=== PATIENT | male | born 1960 | race Caucasian/White ===

== ENCOUNTER 2020-06-23 09:13 | Day surgery (SDC) | payer OTHER, SELFPAY ==
[2020-06-23 09:17] VITALS: BP 175/112; PULSE 90; RESP 18; TEMP 36.2; O2SAT 97; BMI 39.2
--- NOTE | 2020-06-23 09:54 | XR_ITS ---
WS: [id number] Exam: XR toe LT min 2V [id number] Date/Time of Exam: 06/23/2020 9:54 AM Reason For Exam: 3rd toe ulcer/hx dm The third toe is targeted for radiographic evaluation. There is osseous destruction of the distal phalanx of the third toe suggesting acute osteomyelitis. T here is marked soft tissue swelling. The remaining osseous structures of the third toe are intact. Th ere appears to be small skin ulceration along the plantar aspect of the third toe. XR/XR toe LT min 2V [id number] IMPRESSION: 1. Osseous destruction of the distal phalanx of the third toe with marked soft tissue swelling. Findings suggest acute osteomyelitis.
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
[2020-06-23] MEDS: vancomycin 1,000 MG in sodium chloride 0.9% 250 ML 250 MG IV (10:41)
[2020-06-23 10:43] LABS: Basophils # 0.1 10^3/uL (0.0-0.1); Basophils % 0.9 %; Eosinophils # 0.4 10^3/uL (0.0-0.8); Eosinophils % 5.6 %; Hematocrit 46.3 % (42.0-52.0); Lymphocytes # 1.5 10^3/uL (0.8-4.8); Mean Corpuscular HGB Conc 32.4 g/dL (30.0-36.0); Mean Corpuscular Hemoglobin 28.7 pg (28.0-34.0); Mean Corpuscular Volume 88.5 fL (80-94); Mean Platelet Volume 12.3 fL (7.4-10.4); Monocytes # 0.6 10^3/uL (0.2-0.9); Monocytes % 8.8 %; Neutrophils # 3.94 10^3/uL (1.8-7.7); Neutrophils % 61.5 %; Nucleated Red Blood Cells % 0 %; Platelet Count 283 10^3/cmm (130-400); Red Blood Count 5.23 10^6/uL (4.1-5.3); Red Cell Distribution Width 12.7 % (12.1-15.1); White Blood Count 6.4 10^3/uL (4.0-10.0)
[2020-06-23 10:58] VITALS: BP 156/92; PULSE 80; RESP 18; O2SAT 98
[2020-06-23 11:07] LABS: Alanine Aminotransferase 15 U/L (0-41); Albumin Level 3.9 g/dL (3.5-5.2); Alkaline Phosphatase 93 IU/L (40-130); Anion Gap 12.9 (5-19); Aspartate Amino Transferase 16 U/L (0-40); Blood Urea Nitrogen 10 mg/dL (6-20); C Reactive Protein 12.7 mg/L (0.0-4.9); Carbon Dioxide 26 mmol/L (22-29); Chloride 103 mmol/L (98-107); Globulin 3.3 g/dL (1.3-4.6); Glomerular Filtration Rate 99.3 mL/min (90-130); Glucose 169 mg/dL (65-115); Osmolality Calculated 289 mOsm/kg (285-295); Potassium 3.9 mmol/L (3.5-5.1); Sodium 138 mmol/L (136-145); Total Bilirubin 0.3 mg/dL (0.15-1.2); Total Protein 7.2 g/dL (6.6-8.7)
[2020-06-23 12:40] VITALS: BP 137/80; PULSE 82; RESP 18; O2SAT 98
[2020-06-23 13:53] VITALS: PULSE 82; RESP 20; O2SAT 98
--- NOTE | 2020-06-23 14:20 | XR_ITS ---
WS: [id number] PORTABLE CHEST HISTORY: picc line placement COMPARISON: None available. Right-sided PICC line has been placed with tip in the distal SVC. Lungs are clear and well expanded. No pleural effusion or pneumothorax. Cardiac size: Normal. Mediastinum/Aorta: Normal mediastinum. No osseous abnormality seen. XR/XR chest 1V portable [id number] IMPRESSION: Satisfactory RIGHT PICC line placement.
--- NOTE | 2020-06-23 14:38 | PC.SOCIAL ---
Called [facility] and per [facility] [id number] Vancomycin no Prior authorization required. No Ref Number Date Called 06/23/2020 1435 Name: Natasha Rooney at [facility].
--- NOTE | 2020-06-23 15:38 | DCPLANNER ---
social media content manager was asked to arrange for IV antibotics for patient. social media content manager spoke with patient and his about which home health company that patient would like to see. Patients picked [facility] and [facility] for home health agencies. social media content manager had patients sign Patient Choice letter which stated which home health company patient would like to use. social media content manager called both of the companies and was told that they did not accept patients insurance which is [facility]. This will have to done at out patient surgery. social media content manager faxed prescription and out patient order to out patient surgery, faxed the order for the IV anitbotic to centralized scheduling. Patient has an appointment scheduled for 06.24.20 for IV antibotics at Out Patient Surgery. Out patient will tell patient when the appointment is scheduled for. social media content manager was also told to schedule a follow up appointment for patient with mauricio, Dr. Stephen. social media content manager called the ortho clinic, spoke with Nelda, gave clinic patients information. social media content manager was told that patients information would be printed and reviewed. Clinic will call patient with appointment information.
--- NOTE | 2020-06-28 10:53 | DCPLANNER ---
Patient had follow up appointment scheduled for 06.26.[address] Stephen - patient did attend appointment.
== END 2020-06-23 14:30 ==
LOC: ER 11:35 → OPS 12:55
PROVIDERS: Emergency Provider Family Medicine; Visit Provider Family Medicine
DX: Z45.2 Encounter for adjustment and management of vascular access device (principal)
CPT/HCPCS: 12345; 36569; 71045; 73660; 80053; 85025; 86140; 87040; 99283; J2250; J2704; J3010; J3370; J7050

== ENCOUNTER 2020-06-26 09:36 | Outpatient (CLI) | payer OTHER, MEDICAID, SELFPAY ==
[2020-06-27 09:48] LABS: Coronavirus Lab Test PTC Negative
== END 2020-06-26 09:37 | disposition home or self-care (01) ==
LOC: LAB 09:38
PROVIDERS: PCP Family Medicine; Visit Provider Family Medicine
DX: Z01.818 Encounter for other preprocedural examination (principal)
CPT/HCPCS: 87635

== ENCOUNTER 2020-06-26 09:47 | Outpatient (RCR) | payer OTHER, SELFPAY ==
[2020-06-24 08:55] VITALS: BMI 39.4
[2020-06-24 08:57] VITALS: BP 169/90; PULSE 88; RESP 16; TEMP 36.8; O2SAT 98
[2020-06-24] MEDS: vancomycin 1,500 MG/300 ML PIGGYBACK 200 MG IV (08:58)
[2020-06-25] MEDS: vancomycin 1,500 MG/300 ML PIGGYBACK 200 MG IV (07:45)
[2020-06-25 09:57] VITALS: BP 148/77; PULSE 76; RESP 18; TEMP 37; O2SAT 97
[2020-06-26] MEDS: vancomycin 1,500 MG/300 ML PIGGYBACK 275 MG IV (10:18)
[2020-06-26 10:19] VITALS: BP 135/82; PULSE 87; RESP 18; TEMP 36.7; O2SAT 98
== END 2020-07-03 23:59 | disposition home or self-care (01) ==
LOC: OPS 09:47
PROVIDERS: PCP Family Medicine; Visit Provider Family Medicine
DX: E11.42 Type 2 diabetes mellitus with diabetic polyneuropathy (principal); M86.8X7 Other osteomyelitis, ankle and foot; Z89.421 Acquired absence of other right toe(s)
CPT/HCPCS: 15852; 96365; 96366; J3370

== ENCOUNTER 2020-06-27 05:52 | Day surgery (SDC) | payer OTHER, SELFPAY ==
[2020-06-26 13:39] VITALS: BMI 39.3
[2020-06-27 06:06] VITALS: BP 140/91; PULSE 83; RESP 18; TEMP 37.1; O2SAT 97
[2020-06-27] MEDS: sodium chloride 0.9% 1,000 ML 30 ML IV (06:28)
[2020-06-27 06:31] LABS: Glucose Point of Care 127 mg/dL (70-110)
--- NOTE | 2020-06-27 06:51 | W.PM.OPSUD ---
Surgery/Procedure H&P Update DATE OF PROCEDURE: June 27, 2020 DATE H&P PERFORMED: 06/26/20 H&P UPDATE INFORMATION: I have reviewed H&P completed within last 30 days, I have examined patient prior to procedure, No changes to prior documentation and H&P is in [facility] [place] on date indicated PREOP DIAGNOSIS: Osteomyelitis left third toe PLANNED PROCEDURE: Operation Date: 06/27/20 07:20 Proposed Procedures p left 3rd toe amputation 35718 M86.9(Left) - Slava Stephen DPM
--- NOTE | 2020-06-27 06:54 | P.OP_ITS ---
Operative Report Date of procedure: June 27, 2020 Pre-op Diagnosis: Osteomyelitis left third toe Post-op diagnosis: same Post-op Findings: Devitalized soft tissue and bone left distal third toe Procedure Done: Left third toe amputation. CPT 69193 Implants: 3-0 Vicryl, 3-0 nylon Specimens removed/disposition: Bone biopsy distal phalanx left third toe sent to microbiology for Gram stain and culture Pathology: none sent Surgeon: Slava Stephen DPM Brand Advisor: Alise Anesthesia: MAC Estimated blood loss: 10 mL Tourniquet time: See intraoperative documentation IV fluids: None Urine output: None Complications: None Findings: Devitalized soft tissue and bone distal phalanx left third toe Condition: stable Disposition: PACU Brief History: Patient is a pleasant 59-year-old diabetic male with osteomyelitis to the distal phalanx left third toe. He does not wish to undergo long-term antibiotics with PICC line states he would prefer to have amputation is more definitive and curative option and avoid the transportation and financial burden of long-term antibiotics with chances of amputation down the road. Risks include pain, bleeding, numbness, persistent infection need for higher level of amputation, transfer pressure and transfer lesion new wound formation, surgical site dehiscence need for antibiotics. Procedure: Under mild sedation the patient was brought to the operating room and placed on the operating table in supine position. Timeout was performed. Anesthesia was then administered by the anesthesia service. Local anesthesia injected by myself consisting of 20 cc of 0.5% Marcaine plain and a left third ray block fashion proximally. Well-padded pneumatic tourniquet applied to the left ankle. Left lower extremity was then scrubbed, prepped and draped utilizing normal aseptic technique. Left foot was elevated and tourniquet inflated to 250 mmHg. Attention was directed to the left third toe where 2 converging semielliptical incisions were carried out in a vertical fashion at the third metatarsal phalangeal joint full-thickness with a #15 blade where the third toe was disarticulated sharply from the metatarsophalangeal joint and passed from operative field. Incision site was irrigated with copious amounts of sterile saline solution. Extensor and flexor tendons retracted under traction and cut at the proximal margin. All bleeders were ligated and cauterized as necessary. The head of the left third metatarsal was directly visualized at appropriate density in color without any signs of necrosis. Further irrigation was performed followed by closure of the deep subcutaneous and fascial layer consisting of 3-0 Vicryl. Skin closed with 3-0 nylon. Incision site was dressed with Adaptic, sterile 4 x 4's, Kerlix and Petar wrap followed by application of postop shoe. Tourniquet was deflated and a prompt hyperemic response was noted to the remaining distal digits of the left foot. Patient tolerated procedure well and was transferred to the PACU with vital signs stable and vascular status intact. Following a period of postoperative monitoring he will be discharged home was prescribed doxycycline 100 mg to be taken twice daily for the next 2 weeks will adjust antibiotics appropriately once cultures yield further information. He is to elevate his left foot at all times minimal weightbearing heel touch for transfers only. Will follow up on 07/03/2024 first dressing change.
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
--- NOTE | 2020-06-27 08:34 | XR_ITS ---
WS: [id number] XR foot LT min 3V* [id number] REASON FOR EXAM: post op FINDINGS: Compared to previous examination of 06/23/2020 there is been surgical removal of the phalanges of the left third toe. No bony fragments or other radiopaque abnormality in the soft tissues at the [facility] l bed. XR/XR foot LT min 3V* [id number] IMPRESSION: Amputation of distal left third toe as above.
[2020-06-27 09:05] VITALS: BP 134/89; PULSE 77; RESP 16; TEMP 36.2; O2SAT 98
--- NOTE | 2020-06-27 13:33 | ANE.PACU2 ---
Inpatient post-anesthesia follow up: Airway intact: Yes Vital signs: Temperature 97.2 F Pulse Rate 77 Respiratory Rate 16 Blood Pressure 134/89 Pulse Oximetry 98 Oxygen Delivery Me thod Room Air Oxygen Flow Rate Fraction of Inspir ed Oxygen Hydration adequate: Yes Nausea and vomiting: No Pain level: 2 Mental status: Baseline
== END 2020-06-27 09:35 | disposition home or self-care (01) ==
PROVIDERS: PCP Family Medicine; Visit Provider Podiatrist Foot & Ankle Surgery
PROC: (CPT 28820; principal; 2020-06-27 07:20)
DX: M86.8X7 Other osteomyelitis, ankle and foot (principal); E11.9 Type 2 diabetes mellitus without complications; I10 Essential (primary) hypertension
CPT/HCPCS: 28820; 12345; 36416; 73630; 82962; 87070; 87075; 87205; 88305; J0690; J2250; J2704; J3010; J3490; J7030

== ENCOUNTER → 2020-07-13 08:46 | Outpatient (BNVA) | payer OTHER, SELFPAY | PROVIDERS: PCP Family Medicine; Visit Provider Podiatrist Foot & Ankle Surgery | DX: E11.69 Type 2 diabetes mellitus with other specified complication (principal); M86.9 Osteomyelitis, unspecified; E11.42 Type 2 diabetes mellitus with diabetic polyneuropathy; Z47.89 Encounter for other orthopedic aftercare | CPT/HCPCS: 73630 ==

== ENCOUNTER → 2020-08-17 11:37 | Outpatient (BNVA) | payer OTHER, SELFPAY | PROVIDERS: PCP Family Medicine; Visit Provider Podiatrist Foot & Ankle Surgery | DX: Z47.89 Encounter for other orthopedic aftercare (principal); E11.42 Type 2 diabetes mellitus with diabetic polyneuropathy; Z89.422 Acquired absence of other left toe(s); M19.072 Primary osteoarthritis, left ankle and foot | CPT/HCPCS: 73630 ==

== ENCOUNTER 2020-08-17 14:04 | Outpatient (CLI) | payer OTHER, SELFPAY | END 2020-08-17 14:05 | disposition home or self-care (01) | LOC: SPT 14:05 | PROVIDERS: PCP Family Medicine; Visit Provider Podiatrist Foot & Ankle Surgery | DX: Z46.89 Encounter for fitting and adjustment of other specified devices (principal); L97.522 Non-pressure chronic ulcer of other part of left foot with fat layer exposed | CPT/HCPCS: 87070; 87075; 87077; 87186; 87205; 97760; L4361 ==

== ENCOUNTER 2020-08-21 14:04 | Outpatient (CLI) | payer OTHER, SELFPAY | END 2020-08-21 14:05 | disposition home or self-care (01) | LOC: WOUND 14:05 | PROVIDERS: PCP Family Medicine; Visit Provider Nurse Practitioner Family | DX: E11.621 Type 2 diabetes mellitus with foot ulcer (principal); L97.522 Non-pressure chronic ulcer of other part of left foot with fat layer exposed | CPT/HCPCS: 11042; G0463; L4387 ==

== ENCOUNTER 2020-08-28 13:59 | Outpatient (CLI) | payer OTHER, SELFPAY | END 2020-08-28 14:00 | disposition home or self-care (01) | PROVIDERS: PCP Family Medicine; Visit Provider Thoracic Surgery (Cardiothoracic Vascular Surgery) | DX: E11.621 Type 2 diabetes mellitus with foot ulcer (principal); L97.522 Non-pressure chronic ulcer of other part of left foot with fat layer exposed | CPT/HCPCS: 11044; 87070; 87077; 87176; 87186; 87205 ==

== ENCOUNTER 2020-09-04 13:59 | Outpatient (CLI) | payer OTHER, SELFPAY | END 2020-09-04 14:00 | disposition home or self-care (01) | LOC: WOUND 14:00 | PROVIDERS: PCP Family Medicine; Visit Provider Surgery | DX: E11.621 Type 2 diabetes mellitus with foot ulcer (principal); L97.522 Non-pressure chronic ulcer of other part of left foot with fat layer exposed | CPT/HCPCS: 11042 ==

== ENCOUNTER 2020-09-11 14:39 | Outpatient (CLI) | payer OTHER, SELFPAY | END 2020-09-11 14:40 | disposition home or self-care (01) | LOC: WOUND 14:40 | PROVIDERS: PCP Family Medicine; Visit Provider Nurse Practitioner Family | DX: E11.621 Type 2 diabetes mellitus with foot ulcer (principal); L97.522 Non-pressure chronic ulcer of other part of left foot with fat layer exposed | CPT/HCPCS: 11042 ==

== ENCOUNTER 2020-10-02 12:58 | Outpatient (CLI) | payer OTHER, SELFPAY | END 2020-10-02 12:59 | disposition home or self-care (01) | LOC: WOUND 12:58 | PROVIDERS: PCP Family Medicine; Visit Provider Nurse Practitioner Family | DX: E11.621 Type 2 diabetes mellitus with foot ulcer (principal); L97.522 Non-pressure chronic ulcer of other part of left foot with fat layer exposed | CPT/HCPCS: 11042 ==

== ENCOUNTER 2020-10-09 13:00 | Outpatient (CLI) | payer OTHER, SELFPAY | END 2020-10-09 13:01 | disposition home or self-care (01) | LOC: WOUND 13:02 | PROVIDERS: PCP Family Medicine; Visit Provider Thoracic Surgery (Cardiothoracic Vascular Surgery) | DX: E11.621 Type 2 diabetes mellitus with foot ulcer (principal); L97.522 Non-pressure chronic ulcer of other part of left foot with fat layer exposed | CPT/HCPCS: 11043 ==

== ENCOUNTER 2020-10-16 13:05 | Outpatient (CLI) | payer OTHER, SELFPAY | END 2020-10-16 13:06 | disposition home or self-care (01) | LOC: WOUND 13:05 | PROVIDERS: PCP Family Medicine; Visit Provider Nurse Practitioner Family | DX: E11.621 Type 2 diabetes mellitus with foot ulcer (principal); L97.522 Non-pressure chronic ulcer of other part of left foot with fat layer exposed | CPT/HCPCS: 11042 ==

== ENCOUNTER 2020-10-23 13:06 | Outpatient (CLI) | payer OTHER, SELFPAY | END 2020-10-23 13:07 | disposition home or self-care (01) | LOC: WOUND 13:07 | PROVIDERS: PCP Family Medicine; Visit Provider Nurse Practitioner Family | DX: E11.621 Type 2 diabetes mellitus with foot ulcer (principal); L97.522 Non-pressure chronic ulcer of other part of left foot with fat layer exposed | CPT/HCPCS: 11042 ==

== ENCOUNTER 2020-10-27 08:51 | Outpatient (CLI) | payer OTHER, SELFPAY ==
--- NOTE | 2020-10-27 08:56 | MR_ITS ---
WS: [id number] MRI LEFT FOOT with and without CONTRAST. COMPARISON: 08/17/2020 radiographs. HISTORY: Prior third toe amputation. Ulcer RIGHT second toe. Multiplanar, multisequence imaging is performed with and without contrast. Prior amputation of the third toe. Soft tissue ulceration with decreased T1 signal and increased T2 signal involving the very distal sec ond toe. There is enhancement within the soft tissues of the adjacent distal phalanx of the second to e. The area of abnormal signal and enhancement measures 12 x 11 mm and is contiguous with the ulcerat ion. No fluid at the DIP joint. Mild soft tissue enhancement surrounds the second toe and extending i nto the third toe amputation site but there is no abscess. Moderate degenerative changes at the first metatarsophalangeal joint. Subchondral erosions and small osteophytes with joint space narrowing. No fractures. Flexion and extension tendons are normal. Achil les tendon is intact. MR/MR foot LT wo/w con [id number] IMPRESSION: 1. Cellulitis and focal osteomyelitis involving the very distal second toe. Th e area of cellulitis and osteomyelitis measures 12 x 11 mm. 2. Prior third toe amputation.
[2020-10-27] MEDS: gadobenate dimeglumine 20 mL vial IV (10:20)
== END 2020-10-27 08:52 | disposition home or self-care (01) ==
LOC: RADSHAW 08:55
PROVIDERS: PCP Family Medicine; Visit Provider Thoracic Surgery (Cardiothoracic Vascular Surgery)
DX: E11.621 Type 2 diabetes mellitus with foot ulcer (principal); L97.519 Non-pressure chronic ulcer of other part of right foot with unspecified severity; Z89.422 Acquired absence of other left toe(s); L03.032 Cellulitis of left toe; M86.8X7 Other osteomyelitis, ankle and foot
CPT/HCPCS: 73720; A9577

== ENCOUNTER 2020-10-30 13:47 | Outpatient (CLI) | payer OTHER, SELFPAY | END 2020-10-30 13:48 | disposition home or self-care (01) | LOC: WOUND 13:48 | PROVIDERS: PCP Family Medicine; Visit Provider Nurse Practitioner Family | DX: E11.621 Type 2 diabetes mellitus with foot ulcer (principal); L97.522 Non-pressure chronic ulcer of other part of left foot with fat layer exposed | CPT/HCPCS: 11042 ==

== ENCOUNTER 2020-11-06 14:50 | Outpatient (CLI) | payer OTHER, SELFPAY | END 2020-11-06 14:51 | disposition home or self-care (01) | LOC: WOUND 14:51 | PROVIDERS: PCP Family Medicine; Visit Provider Nurse Practitioner Family | DX: E11.621 Type 2 diabetes mellitus with foot ulcer (principal); L97.522 Non-pressure chronic ulcer of other part of left foot with fat layer exposed | CPT/HCPCS: 11042 ==

== ENCOUNTER 2020-11-20 11:11 | Outpatient (CLI) | payer OTHER, SELFPAY | END 2020-11-20 11:12 | disposition home or self-care (01) | LOC: WOUND 11:12 | PROVIDERS: PCP Family Medicine; Visit Provider Nurse Practitioner Family | DX: E11.621 Type 2 diabetes mellitus with foot ulcer (principal); L97.522 Non-pressure chronic ulcer of other part of left foot with fat layer exposed | CPT/HCPCS: 11042 ==

== ENCOUNTER 2020-11-27 14:06 | Outpatient (CLI) | payer OTHER, SELFPAY | END 2020-11-27 14:07 | disposition home or self-care (01) | LOC: WOUND 14:07 | PROVIDERS: PCP Family Medicine; Visit Provider Thoracic Surgery (Cardiothoracic Vascular Surgery) | DX: E11.621 Type 2 diabetes mellitus with foot ulcer (principal); L97.522 Non-pressure chronic ulcer of other part of left foot with fat layer exposed | CPT/HCPCS: 11042 ==

== ENCOUNTER 2020-12-04 14:51 | Outpatient (CLI) | payer OTHER, SELFPAY | END 2020-12-04 14:52 | disposition home or self-care (01) | LOC: WOUND 14:52 | PROVIDERS: PCP Family Medicine; Visit Provider Thoracic Surgery (Cardiothoracic Vascular Surgery) | DX: E11.621 Type 2 diabetes mellitus with foot ulcer (principal); L97.522 Non-pressure chronic ulcer of other part of left foot with fat layer exposed | CPT/HCPCS: 11042 ==

== ENCOUNTER 2020-12-11 14:56 | Outpatient (CLI) | payer OTHER, SELFPAY | END 2020-12-11 14:57 | disposition home or self-care (01) | LOC: WOUND 14:58 | PROVIDERS: PCP Family Medicine; Visit Provider Thoracic Surgery (Cardiothoracic Vascular Surgery) | DX: E11.621 Type 2 diabetes mellitus with foot ulcer (principal); L97.522 Non-pressure chronic ulcer of other part of left foot with fat layer exposed | CPT/HCPCS: 11042 ==

== ENCOUNTER 2020-12-18 15:08 | Outpatient (CLI) | payer OTHER, SELFPAY | END 2020-12-18 15:09 | disposition home or self-care (01) | LOC: WOUND 15:08 | PROVIDERS: PCP Family Medicine; Visit Provider Thoracic Surgery (Cardiothoracic Vascular Surgery) | DX: E11.621 Type 2 diabetes mellitus with foot ulcer (principal); L97.522 Non-pressure chronic ulcer of other part of left foot with fat layer exposed | CPT/HCPCS: 11042 ==

== ENCOUNTER 2020-12-28 15:40 | Outpatient (CLI) | payer OTHER, SELFPAY | END 2020-12-28 15:41 | disposition home or self-care (01) | LOC: WOUND 15:41 | PROVIDERS: PCP Family Medicine; Visit Provider Thoracic Surgery (Cardiothoracic Vascular Surgery) | DX: E11.621 Type 2 diabetes mellitus with foot ulcer (principal); L97.522 Non-pressure chronic ulcer of other part of left foot with fat layer exposed | CPT/HCPCS: 11042 ==

== ENCOUNTER 2021-01-04 14:58 | Outpatient (CLI) | payer OTHER, SELFPAY | END 2021-01-04 14:59 | disposition home or self-care (01) | LOC: WOUND 14:59 | PROVIDERS: PCP Family Medicine; Visit Provider Thoracic Surgery (Cardiothoracic Vascular Surgery) | DX: E11.621 Type 2 diabetes mellitus with foot ulcer (principal); L97.522 Non-pressure chronic ulcer of other part of left foot with fat layer exposed | CPT/HCPCS: 11042 ==

== ENCOUNTER 2021-01-11 15:58 | Outpatient (CLI) | payer OTHER, SELFPAY | END 2021-01-11 15:59 | disposition home or self-care (01) | LOC: WOUND 15:58 | PROVIDERS: PCP Family Medicine; Visit Provider Thoracic Surgery (Cardiothoracic Vascular Surgery) | DX: E11.621 Type 2 diabetes mellitus with foot ulcer (principal); L97.525 Non-pressure chronic ulcer of other part of left foot with muscle involvement without evidence of necrosis | CPT/HCPCS: 11042 ==

== ENCOUNTER 2021-01-17 14:51 | Outpatient (CLI) | payer OTHER, SELFPAY ==
--- NOTE | 2021-01-17 15:08 | ECG_ITS ---
[facility] Test Date: 2021-01-17 Pat Name: Melvin Contreras Department: Room: Gender: Male Plaster Lather: : 1960 Requested By: Mauricio Lewis Order Number: [id number] Jhonathan MD: Lauren Mujica M.D. Measurements Intervals [place] Rate: 80 P: 29 NE: 152 QRS: 36 QRSD: 87 T: 42 QT: 364 QTc: 422 Interpretive Statements SINUS RHYTHM WITH OCCASIONAL SUPRAVENTRICULAR PREMATURE COMPLEXES LOW QRS VOLTAGE IN PRECORDIAL LEADS [QRS DEFLECTION < 1.0 mV IN CHEST LEADS] No previous ECG available for comparison Electronically Signed On 01-17-2021 17:51:37 CDT by Lauren Mujica M.D. [id number]
--- NOTE | 2021-01-17 15:19 | XR_ITS ---
WS: [id number] Exam: XR chest 2V* [id number] Date/Time of Exam: 01/17/2021 3:54 PM Reason For Exam: SCREENING FOR RESPIRATORY DISORDERS/?BULLOUS DZ Comparison 07/01/2020. Findings: The lungs are clear and fully expanded. Costophrenic angles are sharp. No infiltrates. Bronchovascula r relief appears normal. Cardiac silhouette is unremarkable. Bony elements are intact. XR/XR chest 2V* [id number] IMPRESSION: Unremarkable chest radiograph.
[2021-01-17 16:36] LABS: Basophils # 0.1 10^3/uL (0.0-0.1); Basophils % 0.9 %; Eosinophils # 0.5 10^3/uL (0.0-0.8); Eosinophils % 6.5 %; Hematocrit 46.6 % (42.0-52.0); Hemoglobin 15.4 g/dL (11.7-16.6); Lymphocytes # 1.9 10^3/uL (0.8-4.8); Lymphocytes % 25.7 %; Mean Corpuscular Hemoglobin 29.7 pg (28.0-34.0); Monocytes # 0.7 10^3/uL (0.2-0.9); Monocytes % 9.6 %; Neutrophils # 4.28 10^3/uL (1.8-7.7); Neutrophils % 57.2 %; Nucleated Red Blood Cells % 0 %; Platelet Count 209 10^3/cmm (130-400); Red Blood Count 5.18 10^6/uL (4.1-5.3); Red Cell Distribution Width 13.5 % (12.1-15.1); White Blood Count 7.5 10^3/uL (4.0-10.0)
[2021-01-17 17:00] LABS: Alanine Aminotransferase 16 U/L (0-41); Albumin Level 4.1 g/dL (3.5-5.2); Alkaline Phosphatase 88 IU/L (40-130); Anion Gap 14.1 (5-19); Aspartate Amino Transferase 17 U/L (0-40); Blood Urea Nitrogen 12 mg/dL (6-20); C Reactive Protein 27.5 mg/L (0.0-4.9); Calcium 8.6 mg/dL (8.5-10.5); Carbon Dioxide 29 mmol/L (22-29); Chloride 104 mmol/L (98-107); Glomerular Filtration Rate 115.4 mL/min (90-130); Glucose 122 mg/dL (65-115); Osmolality Calculated 297 mOsm/kg (285-295); Potassium 4.1 mmol/L (3.5-5.1); Sodium 143 mmol/L (136-145); Total Bilirubin 0.6 mg/dL (0.15-1.2); Total Protein 7.1 g/dL (6.6-8.7)
[2021-01-17 17:19] LABS: Prealbumin 20.2 mg/dL (20-40)
[2021-01-17 18:09] LABS: Erythrocyte Sedimentation Rate 22 mm/hr (0-10)
[2021-01-17 19:41] LABS: Estmated Average Glucose 120; Hemoglobin A1C 5.8 % (4.0-6.0)
== END 2021-01-17 14:52 | disposition home or self-care (01) ==
PROVIDERS: PCP Family Medicine; Visit Provider Thoracic Surgery (Cardiothoracic Vascular Surgery)
DX: Z13.83 Encounter for screening for respiratory disorder NEC (principal)
CPT/HCPCS: 36415; 71046; 80053; 83036; 84134; 85025; 85651; 86140; 93005

== ENCOUNTER 2021-01-18 14:54 | Outpatient (CLI) | payer OTHER, SELFPAY | END 2021-01-18 14:55 | disposition home or self-care (01) | LOC: WOUND 14:55 | PROVIDERS: PCP Family Medicine; Visit Provider Thoracic Surgery (Cardiothoracic Vascular Surgery) | DX: E11.621 Type 2 diabetes mellitus with foot ulcer (principal); L97.526 Non-pressure chronic ulcer of other part of left foot with bone involvement without evidence of necrosis | CPT/HCPCS: 11042 ==

== ENCOUNTER 2021-01-25 14:18 | Outpatient (CLI) | payer OTHER, SELFPAY | END 2021-01-25 14:19 | disposition home or self-care (01) | LOC: WOUND 14:19 | PROVIDERS: PCP Family Medicine; Visit Provider Nurse Practitioner Family | DX: E11.621 Type 2 diabetes mellitus with foot ulcer (principal); L97.522 Non-pressure chronic ulcer of other part of left foot with fat layer exposed | CPT/HCPCS: 11042 ==

== ENCOUNTER 2021-02-01 14:56 | Outpatient (CLI) | payer OTHER, SELFPAY | END 2021-02-01 14:57 | disposition home or self-care (01) | LOC: WOUND 14:57 | PROVIDERS: PCP Family Medicine; Visit Provider Thoracic Surgery (Cardiothoracic Vascular Surgery) | DX: E11.621 Type 2 diabetes mellitus with foot ulcer (principal); L97.526 Non-pressure chronic ulcer of other part of left foot with bone involvement without evidence of necrosis | CPT/HCPCS: 11042; 87070; 87077; 87176; 87186; 87205 ==

== ENCOUNTER 2021-02-08 14:55 | Outpatient (CLI) | payer OTHER, SELFPAY | END 2021-02-08 14:56 | disposition home or self-care (01) | LOC: WOUND 14:57 | PROVIDERS: PCP Family Medicine; Visit Provider Thoracic Surgery (Cardiothoracic Vascular Surgery) | DX: E11.621 Type 2 diabetes mellitus with foot ulcer (principal); L97.522 Non-pressure chronic ulcer of other part of left foot with fat layer exposed | CPT/HCPCS: 11042 ==

== ENCOUNTER 2021-02-19 07:46 | Outpatient (CLI) | payer OTHER, SELFPAY | END 2021-02-19 07:47 | disposition home or self-care (01) | PROVIDERS: PCP Family Medicine; Visit Provider Nurse Practitioner Family | DX: E11.621 Type 2 diabetes mellitus with foot ulcer (principal); L97.522 Non-pressure chronic ulcer of other part of left foot with fat layer exposed | CPT/HCPCS: 99212 ==

== ENCOUNTER 2021-02-22 15:19 | Outpatient (CLI) | payer OTHER, SELFPAY | END 2021-02-22 15:20 | disposition home or self-care (01) | LOC: WOUND 15:19 | PROVIDERS: PCP Family Medicine; Visit Provider Thoracic Surgery (Cardiothoracic Vascular Surgery) | DX: E11.621 Type 2 diabetes mellitus with foot ulcer (principal); L97.529 Non-pressure chronic ulcer of other part of left foot with unspecified severity | CPT/HCPCS: G0463 ==

== ENCOUNTER 2021-03-01 13:35 | Outpatient (CLI) | payer OTHER, SELFPAY | END 2021-03-01 13:36 | disposition home or self-care (01) | LOC: WOUND 13:36 | PROVIDERS: PCP Family Medicine; Visit Provider Nurse Practitioner Family | DX: E11.621 Type 2 diabetes mellitus with foot ulcer (principal); L97.529 Non-pressure chronic ulcer of other part of left foot with unspecified severity | CPT/HCPCS: G0463 ==

== ENCOUNTER 2021-03-08 14:55 | Outpatient (CLI) | payer OTHER, SELFPAY | END 2021-03-08 14:56 | disposition home or self-care (01) | LOC: WOUND 14:57 | PROVIDERS: PCP Family Medicine; Visit Provider Thoracic Surgery (Cardiothoracic Vascular Surgery) | DX: Z09 Encounter for follow-up examination after completed treatment for conditions other than malignant neoplasm (principal) | CPT/HCPCS: 99212 ==

== ENCOUNTER 2021-04-07 13:25 | Outpatient (CLI) | payer OTHER, SELFPAY ==
[2021-04-07 13:46] VITALS: BP 115/80; PULSE 105; RESP 20; TEMP 36.6; O2SAT 93; BMI 38.0
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
[2021-04-08 08:16] VITALS: BP 117/80; PULSE 81; RESP 18; TEMP 37.3; O2SAT 99
[2021-04-08 10:00] VITALS: BP 101/67; PULSE 74; RESP 18; TEMP 37.4; O2SAT 95
== END 2021-04-08 07:35 | disposition home or self-care (01) ==
PROVIDERS: Emergency Provider Nurse Practitioner Family; PCP Family Medicine; Visit Provider Nurse Practitioner Family
DX: U07.1 COVID-19 (principal)
CPT/HCPCS: 96365

== ENCOUNTER → 2024-11-08 09:33 | Outpatient (BNVA) | payer OTHER, SELFPAY | PROVIDERS: PCP Family Medicine; Visit Provider Podiatrist Foot & Ankle Surgery | DX: L97.523 Non-pressure chronic ulcer of other part of left foot with necrosis of muscle (principal) | CPT/HCPCS: 87070; 87075; 87205 ==